=== PATIENT | male | born 1935 | race Caucasian/White ===

== ENCOUNTER 2017-02-14 07:32 | Day surgery (SDC) | payer OTHER, MEDICARE ==
[2017-02-09 14:38] VITALS: BMI 23.4
[2017-02-14] MEDS ORDERED: PROPOFOL 20 ML ONE ×2 (07:36)
[2017-02-14] MEDS ORDERED: LIDOCAINE HCL/PF 2% SDV 5ML VIAL ONE (07:36)
[2017-02-14 09:34] VITALS: TEMP 98.4
[2017-02-14 09:50] VITALS: BP 104/60; PULSE 66
== END 2017-02-14 09:40 | disposition home or self-care (01) ==
LOC: FASU-ENDO 07:32
PROVIDERS: ATTEND Internal Medicine Gastroenterology
PROC: 0DJD8ZZ Inspection of Lower Intestinal Tract, Via Natural or Artificial Opening Endoscopic (ICD-10-PCS; principal; 2017-02-14 08:33)
DX: Z86.010 Personal history of colon polyps (principal)